=== PATIENT | female | born 1985 | race American Indian/Alaskan Native ===

== ENCOUNTER 2016-11-24 00:45 | Emergency (ER) | payer SELFPAY ==
[2016-11-24 02:12] VITALS: BP 119/87
--- NOTE | 2016-11-24 03:29 | Emergency Department Report ---
- General Chief complaint: Skin Rash Stated complaint: FACIAL/EAR IRRITATION/RASH Time Seen by Provider: 11/24/16 02:54 Source: patient Mode of arrival: Ambulatory Limitations: No Limitations - History of Present Illness Initial comments: Patient is a 31-year-old female who presents to ED complaining of facial rash 2 months as well as soreness behind her right ear 1 month. Patient states fissure rash began 2 months ago gets irritated all around her forehead and cheeks in from the ears. She states mild aching. Patient states that she has never can't have it looked at. Patient describes right here pain and soreness has gotten worse in the past 2 days. Patient denies any ear pain/tooth pain or mouth pain. She denies any recent dental work. Patient denies fevers/chills as nauseous as vomiting such as chest pain/ drainage from site. - Related Data Home Medications Medication Instructions Recorded Confirmed Last Taken Clomiphene Citrate [clomiPHENE] 100 mg PO DAILY 07/27/15 07/27/15 07/27/15 Previous Rx's Medication Instructions Recorded Last Taken Type Acetaminophen/Codeine [Tylenol #3] 1 tab PO Q6H PRN #20 tab 07/27/15 Unknown Rx Amoxicillin/K Clav Tab [Augmentin 1 tab PO Q12HR #20 tab 07/27/15 Unknown Rx 875MG TAB] Loratadine [Claritin] 10 mg PO DAILY #30 tablet 07/27/15 Unknown Rx Ibuprofen [Motrin] 800 mg PO Q8HR PRN #30 tablet 11/24/16 Unknown Rx Prednisone [predniSONE 10 mg 10 mg PO .TAPER #1 tab.ds.pk 11/24/16 Unknown Rx (6-Day Pack, 21 Tabs)] Triamcinolone 0.5% [Kenalog 0.5% 1 applic TP TID #1 tube 11/24/16 Unknown Rx CREAM] Allergies Allergy/AdvReac Type Severity Reaction Status Date / Time No Known Allergies Allergy Unverified 07/27/15 10:20 Abscess Boil HPI - HPI Chief Complaint: Skin Rash Stated Complaint: FACIAL/EAR IRRITATION/RASH Time Seen by Provider: 11/24/16 02:54 Duration: >1 Week Severity: Moderate History: Yes Pain, No Fever, No Purulent Drainage, No Numbness, No Foreign Body , No Previous History, No Insect Bite Home Medications: Home Medications Medication Instructions Recorded Confirmed Last Taken Clomiphene Citrate [clomiPHENE] 100 mg PO DAILY 07/27/15 07/27/15 07/27/15 Previous Rx's Medication Instructions Recorded Last Taken Type Acetaminophen/Codeine [Tylenol #3] 1 tab PO Q6H PRN #20 tab 07/27/15 Unknown Rx Amoxicillin/K Clav Tab [Augmentin 1 tab PO Q12HR #20 tab 07/27/15 Unknown Rx 875MG TAB] Loratadine [Claritin] 10 mg PO DAILY #30 tablet 07/27/15 Unknown Rx Ibuprofen [Motrin] 800 mg PO Q8HR PRN #30 tablet 11/24/16 Unknown Rx Prednisone [predniSONE 10 mg 10 mg PO .TAPER #1 tab.ds.pk 11/24/16 Unknown Rx (6-Day Pack, 21 Tabs)] Triamcinolone 0.5% [Kenalog 0.5% 1 applic TP TID #1 tube 11/24/16 Unknown Rx CREAM] Allergies/Adverse Reactions: Allergies Allergy/AdvReac Type Severity Reaction Status Date / Time No Known Allergies Allergy Unverified 07/27/15 10:20 ED Review of Systems ROS: Stated complaint: FACIAL/EAR IRRITATION/RASH Other details as noted in HPI Constitutional: denies: chills, fever Eyes: denies: eye pain, eye discharge, vision change ENT: denies: ear pain, throat pain Respiratory: denies: cough, shortness of breath, wheezing Cardiovascular: denies: chest pain, palpitations Endocrine: no symptoms reported Gastrointestinal: denies: abdominal pain, nausea, diarrhea Genitourinary: denies: urgency, dysuria, discharge Musculoskeletal: denies: back pain, joint swelling, arthralgia Skin: denies: rash, lesions Neurological: denies: headache, weakness, paresthesias Psychiatric: denies: anxiety, depression Hematological/Lymphatic: denies: easy bleeding, easy bruising ED Past Medical Hx - Past Medical History Previous Medical History?: Yes Additional medical history: Infertility. Anemia - Surgical History Past Surgical History?: Yes Additional Surgical History: myomectomy - Social History Smoking Status: Never Smoker Substance Use Type: None - Medications Home Medications: Home Medications Medication Instructions Recorded Confirmed Last Taken Type Acetaminophen/Codeine [Tylenol #3] 1 tab PO Q6H PRN #20 tab 07/27/15 Unknown Rx Amoxicillin/K Clav Tab [Augmentin 1 tab PO Q12HR #20 tab 07/27/15 Unknown Rx 875MG TAB] Clomiphene Citrate [clomiPHENE] 100 mg PO DAILY 07/27/15 07/27/15 07/27/15 History Loratadine [Claritin] 10 mg PO DAILY #30 tablet 07/27/15 Unknown Rx Ibuprofen [Motrin] 800 mg PO Q8HR PRN #30 tablet 11/24/16 Unknown Rx Prednisone [predniSONE 10 mg 10 mg PO .TAPER #1 tab.ds.pk 11/24/16 Unknown Rx (6-Day Pack, 21 Tabs)] Triamcinolone 0.5% [Kenalog 0.5% 1 applic TP TID #1 tube 11/24/16 Unknown Rx CREAM] ED Physical Exam - General Limitations: No Limitations General appearance: alert, in no apparent distress - Head Head exam: Present: atraumatic, normocephalic - Eye Eye exam: Present: normal appearance, PERRL, EOMI - ENT ENT exam: Present: mucous membranes moist - Expanded ENT Exam Expanded Mouth exam: Present: normal external inspection, tongue normal. Absent: drooling, trismus, muffled voice Teeth exam: Present: normal inspection Throat exam: Positive: normal inspection. Negative: tonsillar erythema, tonsillomegaly, tonsillar exudate, R peritonsillar mass, L peritonsillar mass - Neck Neck exam: Present: normal inspection, full ROM, lymphadenopathy (at right post auricular). Absent: tenderness, meningismus - Respiratory Respiratory exam: Present: normal lung sounds bilaterally. Absent: respiratory distress, wheezes, rales, rhonchi, stridor - Cardiovascular Cardiovascular Exam: Present: regular rate, normal rhythm. Absent: systolic murmur, diastolic murmur, rubs, gallop - GI/Abdominal GI/Abdominal exam: Present: soft, normal bowel sounds. Absent: distended, tenderness, guarding, rebound - Extremities Exam Extremities exam: Present: normal inspection, full ROM. Absent: tenderness, normal capillary refill, pedal edema - Back Exam Back exam: Present: normal inspection. Absent: CVA tenderness (R), CVA tenderness (L) - Neurological Exam Neurological exam: Present: alert, oriented X3 - Psychiatric Psychiatric exam: Present: normal affect, normal mood - Skin Skin exam: Present: warm, dry, intact, normal color, rash, other (crusty plaques surrounding frontal scalp as well as bilateral cheeks). Absent: erythema, vesicles ED Course Vital Signs 11/24/16 02:08 Temperature 99.1 F Pulse Rate 90 Respiratory 20 Rate Blood Pressure 119/87 O2 Sat by Pulse 100 Oximetry ED Medical Decision Making - Medical Decision Making 31-year-old female presents with psoriasis to the scalp and face. In no respiratory or any distress. Vital signs stable. Discussed with patient to need to follow-up with per diem registered nurse. For further assessment psoriasis of the scalp and face area Discussed with patient follow-up with right post auricular cyst. Discussed with patient the difference between a cyst and abscess. Discussed with patient psoriasis and need for topical corticosteroids which would help with the itching. As well as systematic prednisone to help with the inflammation. Discussed need for ENT specialist follow-up for cyst located behind ear. Discussed pain control with Motrin. Discussed Benadryl as needed for itching. - Differential Diagnosis 1. Psoriasis 2. Tenia corporis 3. Eczema. Post Auricular cyst/lymphs Critical care attestation.: If time is entered above; I have spent that time in minutes in the direct care of this critically ill patient, excluding procedure time. ED Disposition Clinical Impression: Psoriasis Disposition: DISCHARGED TO HOME OR SELFCARE Is pt being admited?: No Does the pt Need Aspirin: No Condition: Stable Instructions: Psoriasis (ED), Lymphadenopathy (ED) Prescriptions: Triamcinolone 0.5% [Kenalog 0.5% CREAM] 1 applic TP TID #1 tube Ibuprofen [Motrin] 800 mg PO Q8HR PRN #30 tablet PRN Reason: Pain Prednisone [predniSONE 10 mg (6-Day Pack, 21 Tabs)] 10 mg PO .TAPER #1 tab.ds.pk Referrals: REG OVALLE MD [Staff Physician] - 3-5 Days BERNIE BAEZ MD [Staff Physician] - 3-5 Days DUY ALLEN MD [Staff Physician] - 3-5 Days MEJIA JENSEN MD [Staff Physician] - 3-5 Days DANIELA KING MD [Staff Physician] - 3-5 Days [facility], [Primary Care Provider] - 3-5 Days FABRICE DOUGLAS MD [Staff Physician] - 3-5 Days [facility] [Outside] - 3-5 Days [facility] [Outside] - 3-5 Days [facility] [Outside] - 3-5 Days [facility] [Outside] - 3-5 Days [facility] [Outside] - 3-5 Days Forms: Accompanied Note, Work/School Release Form(ED) Time of Disposition: 03:53
== END 2016-11-24 04:13 | disposition home or self-care (01) ==
LOC: ED 00:45
DX: L40.9 Psoriasis, unspecified (principal)
CPT/HCPCS: 99281